=== PATIENT | female | born 1965 | race Caucasian/White ===

== ENCOUNTER 2016-05-18 08:21 | Day surgery (SDC) | payer OTHER ==
[~2016-05-18 08:21] MED LIST: Lactated Ringers 1,000 ML IV SCH; Lidocaine 1%/Sod Bicarbonate in NS 8.4% 1 ML Syringe IV PRN; Sodium Chloride 0.9% 10 ML Syringe FLUSH PRN
[2016-05-18] MEDS ORDERED: Propofol 200 MG/20 ML SDV ONE (08:41)
[2016-05-18] MEDS ORDERED: Lidocaine 1% 6 ML ONE (08:41)
--- NOTE | 2016-05-18 08:44 | PCM.PREANE ---
Preanesthetic Assessment - Anesthesia/Transfusion/Family Hx Anesthesia History: Prior Anesthesia Without Reaction Family History of Anesthesia Reaction: No Transfusion History: Prior Transfusion Without Reaction - Review of Systems General: No Symptoms Pulmonary: Cough (smokers cough) Cardiovascular: No Symptoms Gastrointestinal: No symptoms Neurological: No Symptoms Other: Reports: None - Physical Assessment NPO Status Date: 05/17/16 NPO Status Time: 19:00 Pulse: 65 O2 Sat by Pulse Oximetry: 97 Respiratory Rate: 16 Blood Pressure: 116/49 Temperature: 36.0 C Height: 1.57 m Weight: 52.163 kg ASA Class: 2 Mental Status: Alert & Oriented x3 Airway Class: Mallampati = 1 Dentition: Reports: Normal Dentition Thyro-Mental Finger Breadths: 3 Mouth Opening Finger Breadths: 3 ROM/Head Extension: Full - Allergies Allergies/Adverse Reactions: Allergies Allergy/AdvReac Type Severity Reaction Status Date / Time erythromycin base Allergy Cannot Verified 10/10/14 09:27 [Erythromycin Base] Remember Penicillins Allergy Vomiting Verified 05/17/16 15:32 - Blood Blood Available: No - Anesthesia Plan Pre-Op Medication Ordered: None - Acknowledgements Anesthesia Type Planned: MAC Pt an Appropriate Candidate for the Planned Anesthesia: Yes Alternatives and Risks of Anesthesia Discussed w Pt/Guardian: Yes Pt/Guardian Understands and Agrees with Anesthesia Plan: Yes PreAnesthesia Questionnaire - Past Health History Medical/Surgical History: Denies Medical/Surgical History HEENT History: Reports: Impaired vision Cardiovascular History: Reports: High cholesterol Respiratory History: Reports: Other (see below) Other Respiratory History: cough Gastrointestinal History: Reports: Chronic diarrhea, GERD, Other (see below) Other Gastrointestinal History: abdominal pain, dyspepsia Genitourinary History: Reports: Other (see below) Other Genitourinary History: overactive bladder [employer]ER [employer] History: Reports: None Musculoskeletal History: Reports: None Neurological History: Reports: Migraines Psychiatric History: Reports: Depression, Other (see below) Other Psychiatric History: depression Endocrine/Metabolic History: Reports: None Hematologic History: Reports: Anemia Immunologic History: Reports: None Oncologic (Cancer) History: Reports: None Dermatologic History: Reports: None - Past Surgical History Head Surgeries/Procedures: Reports: None - SUBSTANCE USE Smoking Status *Q: Current Every Day Smoker Tobacco Use Within Last Twelve Months: Cigarettes Second Hand Smoke Exposure: No Days Per Week of Alcohol Use: 0 Number of Drinks Per Day: 0 Total Drinks Per Week: 0 Recreational Drug Use History: No - HOME MEDS Home Medications: Home Meds Acetaminophen/Diphenhydramine [Tylenol Pm Ex-Strength Caplet] 1 tab PO BEDTIME 05/17/16 [History] Ca Car&Hyd/Soy/Cohos/Melatonin [Estroven Nighttime Caplet] 1 tab PO DAILY [History] Famotidine [Take Home: Famotidine 20 MG, 3 Tab Pack] 20 mg PO BEDTIME 05/17/16 [ History] Loperamide HCl [Imodium A-D] 2 mg PO Q2H PRN 05/17/16 [History] Melatonin 12 mg PO BEDTIME 05/17/16 [History] Pantoprazole Sodium [Protonix] 20 mg PO DAILY 05/17/16 [History] Solifenacin [Vesicare] 10 mg PO DAILY 05/17/16 [History] Sucralfate [Carafate] 10 ml PO QID 05/17/16 [History] - CURRENT (IN HOUSE) MEDS Current Meds: Current Medications Lactated Ringer's (Ringers, Lactated) 1,000 mls @ 125 mls/hr IV ASDIRECTED YURIY Stop: 05/18/16 23:00 Lidocaine/Sodium Bicarbonate (Buffered Lidocaine 1% In Ns 8.4%) 0.25 ml IV ONETIME PRN PRN Reason: Prior to IV Start Stop: 05/18/16 18:00 Sodium Chloride (Saline Flush) 10 ml FLUSH ASDIRECTED PRN PRN Reason: Keep Vein Open Stop: 05/18/16 18:00 Discontinued Medications Lidocaine HCl (Xylocaine-Mpf 1%) Confirm Administered Dose 6 mls @ as directed .ROUTE .STK-MED ONE Stop: 05/18/16 08:42 Propofol (Diprivan 20 Ml) Confirm Administered Dose 200 mg .ROUTE .STK-MED ONE Stop: 05/18/16 08:42
[2016-05-18] MEDS ORDERED: Midazolam 1 MG/ML 2 ML SDV ONE (09:29)
--- NOTE | 2016-05-18 09:48 | PCM.OPNOTE ---
- General Post-Op/Procedure Note Date of Surgery/Procedure: 05/18/16 Operative Procedure(s): EGD with bx's of the antrum, body of the stomach, GE junction, and proximal esophagus Findings: normal EGD Pre Op Diagnosis: dysphagia and dyspepsia Post-Op Diagnosis: normal EGD Anesthesia Technique: MAC, Moderate sedation Primary Surgeon: Sarkis Atkinson Pathology: cold forceps biopsy x2 of the antrum, body of the stomach, GE junction, and proximal esophagus EBL in mLs: 0 Complications: None Condition: Good Free Text/Narrative:: After adequate IV sedation and analgesia was obtained the patient was placed on her left side. Through a bite block a lubricated upper endoscope was easily inserted into the esophagus and advanced under direct vision to the stomach. Air was given here, followed by entry into the duodenum. The distal third, second, and first part of the duodenum were endoscopically normal with no mass lesions or inflammatory changes seen. The antrum was endoscopically unremarkable as well. In the retroflexed view there was no hiatal hernia. The fundic and cardiac, regions were endoscopically normal. Because of her history random biopsies of the antrum x2 with forceps and the body of the stomach X2 with cold forceps wee taken. The scope was withdrawn to the GE junction, which was unremarkable. Random biopsies x2 were taken here as well. The body of the esophagus was grossly normal and in its proximal third I took 2 random biopsies. Ediphone Operator photographs were taken for the patient and for the record. Air was removed, as I finished the procedure, which she tolerated well.
--- NOTE | 2016-05-18 09:54 | PCM48HPAN ---
Post Anesthesia Note - EVALUATION WITHIN 48HRS OF ANESTHETIC Vital Signs in Normal Range: Yes Patient Participated in Evaluation: Yes Respiratory Function Stable: Yes Airway Patent: Yes Cardiovascular Function Stable: Yes Hydration Status Stable: Yes Pain Control Satisfactory: Yes Nausea and Vomiting Control Satisfactory: Yes Mental Status Recovered: Yes
[2016-05-18 10:35] VITALS: BP 119/64
== END 2016-05-18 10:30 | disposition home or self-care (01) ==
LOC: JD.SDS 08:21
PROVIDERS: ATTEND Surgery
DX: K21.9 Gastro-esophageal reflux disease without esophagitis (principal); R13.10 Dysphagia, unspecified; R10.13 Epigastric pain; F32.9 Major depressive disorder, single episode, unspecified; E78.5 Hyperlipidemia, unspecified; F17.210 Nicotine dependence, cigarettes, uncomplicated; G47.00 Insomnia, unspecified; Z88.0 Allergy status to penicillin; Z79.899 Other long term (current) drug therapy
CPT/HCPCS: 43239; 88305; J2250; J7120; J2704

== ENCOUNTER 2016-09-26 20:52 | Emergency (ER) | payer OTHER ==
[2016-09-26] MEDS ORDERED: Lidocaine/EPINEPHrine/Tetracaine Soln 1 ML TOP STA (21:50)
--- NOTE | 2016-09-26 22:57 | EDM.PDOC ---
ED HPI GENERAL MEDICAL PROBLEM - General Chief Complaint: Laceration Stated Complaint: LACERATION TO HAND Time Seen by Provider: 09/26/16 21:42 Source of Information: Reports: Patient, RN Notes Reviewed, Other (Friend) History Limitations: Reports: No Limitations - History of Present Illness INITIAL COMMENTS - FREE TEXT/NARRATIVE: The patient states that she lacerated the posterior aspect of her right thumb on the edge of a broken piece of glass while doing dishes around 20:00 tonight. She is otherwise uninjured. She states that her last tetanus vaccination was about 2 years ago. Her PCP is Gloria Orosco. Right Hand Pain Score (Numeric/FACES): 4 - Related Data Allergies Allergy/AdvReac Type Severity Reaction Status Date / Time erythromycin base Allergy Cannot Verified 05/18/16 09:12 [Erythromycin Base] Remember Penicillins Allergy Vomiting Verified 05/18/16 09:12 Home Meds: Home Meds Acetaminophen/Diphenhydramine [Tylenol Pm Ex-Strength Caplet] 1 tab PO BEDTIME 05/17/16 [History] Ca Car&Hyd/Soy/Cohos/Melatonin [Estroven Nighttime Caplet] 1 tab PO DAILY [History] Famotidine [Take Home: Famotidine 20 MG, 3 Tab Pack] 20 mg PO BEDTIME 05/17/16 [ History] Loperamide HCl [Imodium A-D] 2 mg PO Q2H PRN 05/17/16 [History] Melatonin 12 mg PO BEDTIME 05/17/16 [History] Pantoprazole Sodium [Protonix] 20 mg PO DAILY 05/17/16 [History] Solifenacin [Vesicare] 10 mg PO DAILY 05/17/16 [History] Sucralfate [Carafate] 10 ml PO QID 05/17/16 [History] Past Medical History HEENT History: Reports: Impaired Vision Psychiatric History: Reports: Depression Hematologic History: Reports: Anemia - Past Surgical History HEENT Surgical History: Reports: Oral Surgery ([place] teeth extraction) Neurological Surgical History: Reports: None Social & Family History - Tobacco Use Smoking Status *Q: Current Every Day Smoker Years of Tobacco use: 35 Packs/Tins Daily: 0.5 - Caffeine Use Caffeine Use: Reports: Coffee - Alcohol Use Alcohol Use History: Yes Days Per Week of Alcohol Use: 0 Number of Drinks Per Day: 0 Total Drinks Per Week: 0 Alcohol Use Frequency: Socially - Recreational Drug Use Recreational Drug Use: No - Living Situation & Occupation Living situation: Reports: , Alone 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) ED ROS GENERAL - Review of Systems Review Of Systems: See Below Constitutional: Reports: No Symptoms HEENT: Reports: No Symptoms Respiratory: Reports: No Symptoms Cardiovascular: Reports: No Symptoms Endocrine: Reports: No Symptoms GI/Abdominal: Reports: No Symptoms : Reports: No Symptoms Musculoskeletal: Reports: No Symptoms Skin: Reports: No Symptoms Neurological: Reports: No Symptoms Psychiatric: Reports: No Symptoms Hematologic/Lymphatic: Reports: No Symptoms Immunologic: Reports: No Symptoms ED EXAM, SKIN/RASH Exam: See Below Exam Limited By: No Limitations General Appearance: Alert, WD/WN, No Apparent Distress Extremities: Normal Capillary Refill, Other (Approximately 2.0 cm linear laceration across the dorsal aspect of the patient's right thumb. No tendinous injury. Neurovascular status of the right thumb is intact.) ED SKIN PROCEDURES - Laceration/Wound Repair Right Hand Lac/Wound length In cm: 2.0 Appearance: Subcutaneous, Linear, Clean Distal NVT: Neuro & Vascular Intact, No Tendon Injury Anesthetic Type: Topical (LET) Skin Prep: Providone-Iodine (Betadine) Exploration/Debridement/Repair: Wound Explored, In a Bloodless Field, Explored to Base, No Foreign Material Found, Wound Margins Revised Closed with: Sutures Suture Size: 3-0 # of Sutures: 6 Suture Type: Nylon, Running, Simple Sterile Dressing Applied: Provider Tetanus Status Addressed: Yes Complications: No Course - Vital Signs Last Recorded V/S: Last Vital Signs Temp 36.8 C 09/26/16 21:02 Pulse 78 09/26/16 21:02 Resp 19 09/26/16 21:02 BP Pulse Ox 98 09/26/16 21:02 - Orders/Labs/Meds Meds: Medications Discontinued Medications Generic Name Dose Route Start Last Admin Trade Name Seun PRN Reason Stop Dose Admin Lidocaine/Tetracaine 2 ml 09/26/16 21:50 09/26/16 21:57 Let Soln TOP 09/26/16 21:51 2 ml ONETIME STA Administration - Re-Assessments/Exams Free Text/Narrative Re-Assessment/Exam: 09/26/16 22:54 The patient's right hand laceration was closed with 6 running sutures. Departure - Departure Time of Disposition: 22:54 Disposition: Home, Self-Care 01 Condition: Good Clinical Impression: Laceration of right hand - Discharge Information Instructions: Laceration Care, Adult Referrals: Gloria Orosco PA [Primary Care Provider] - Forms: ED Department Discharge Additional Instructions: You were seen in the emergency room after cutting the back of your right thumb on a broken piece of glass. Your wound was closed with 6 sutures. Keep the wound clean with ordinary soap and water. Pat dry, then cover with a dressing, daily. The wound can get wet, but should not be soaked, such as with doing the dishes, a bath, or swimming. The sutures should be ready for removal by , 10/06/2016. This can be done at a walk-in clinic, at your doctor's office, or back in the ER. If any other problems, please do not hesitate to return to the ER.
== END 2016-09-26 23:00 | disposition home or self-care (01) ==
LOC: JD.ED 20:52
DX: S61.011A Laceration without foreign body of right thumb without damage to nail, initial encounter (principal); F32.9 Major depressive disorder, single episode, unspecified; F17.210 Nicotine dependence, cigarettes, uncomplicated; Z86.2 Personal history of diseases of the blood and blood-forming organs and certain disorders involving the immune mechanism; Z79.899 Other long term (current) drug therapy; Z88.0 Allergy status to penicillin; Z88.1 Allergy status to other antibiotic agents; W25.XXXA Contact with sharp glass, initial encounter; Y93.G1 Activity, food preparation and clean up
CPT/HCPCS: 12001; 99283; A9270; 99282

== ENCOUNTER 2017-03-26 16:05 | Emergency (ER) | payer OTHER ==
[2017-03-26] MEDS ORDERED: traMADol 50 MG Tab PO ONE (16:52)
--- NOTE | 2017-03-26 18:01 | CT ---
Head CT Technique: Multiple axial sections through the brain were obtained. Intravenous contrast was not utilized. Comparison: No prior intracranial imaging. Findings: Ventricles along with basal cisterns and sulci over the convexities are within normal limits for the patient's age. No abnormal parenchymal densities are seen. No evidence of intracranial hemorrhage. No midline shift or mass effect is seen. Bone window settings were reviewed which shows no acute calvarial abnormality. Visualized sinuses are clear. Impression: 1. Nothing acute is appreciated on noncontrast head CT exam. Diagnostic code #1
--- NOTE | 2017-03-26 18:03 | CT ---
CT cervical spine Technique: Multiple axial sections were obtained from above C1 inferiorly to the bottom of T2. Reconstructed sagittal and coronal images were reviewed. Findings: Mastoid sinuses are clear. Posterior skull base is intact. Slight kyphosis is noted with minimal scoliosis. Minimal disc space narrowing is noted C5-C6. Vertebral bodies and posterior arches are intact. No fracture is seen. Mild scattered degenerative apophyseal change is seen. No abnormal subluxation is seen. Impression: 1. Slight kyphosis which is most likely positional. Minimal scoliosis is noted. 2. Minimal degenerative change. 3. No acute abnormality is seen on CT study of the cervical spine. Diagnostic code #2
--- NOTE | 2017-03-26 18:51 | EDM.PDOC ---
ED HPI GENERAL MEDICAL PROBLEM - General Chief Complaint: Head Injury Stated Complaint: FALL-HEAD INJURY Time Seen by Provider: 03/26/17 16:21 Source of Information: Reports: Patient History Limitations: Reports: No Limitations - History of Present Illness INITIAL COMMENTS - FREE TEXT/NARRATIVE: The patient slipped and fell on the ice last night. She hit her head and hurt her neck. She also did hit her left elbow. She had no LOC. She now has a headache and neck pain. She has no numbness or weakness. She has no chest pain or shortness or breath. She has no abdominal pain. She has an abrasion to her left elbow. She has no other injuries. Onset: Sudden Duration: Day(s): (last night) Location: Reports: Head, Neck, Upper Extremity, Left (elbow) Quality: Reports: Sharp Severity: Moderate Improves with: Reports: Immobilization Worsens with: Reports: Movement Associated Symptoms: Reports: Headaches. Denies: Chest Pain, Cough, Nausea/ Vomiting, Shortness of Breath Head Pain Score (Numeric/FACES): 7 - Related Data Allergies Allergy/AdvReac Type Severity Reaction Status Date / Time erythromycin base Allergy Cannot Verified 03/26/17 16:19 [Erythromycin Base] Remember Penicillins Allergy Vomiting Verified 03/26/17 16:19 Home Meds: Home Meds Loperamide HCl [Imodium A-D] 2 mg PO Q2H PRN 05/17/16 [History] Solifenacin [Vesicare] 10 mg PO DAILY 05/17/16 [History] Eszopiclone [Lunesta] 1 tab PO BEDTIME 03/26/17 [History] buPROPion [Wellbutrin] 75 mg PO DAILY 03/26/17 [History] Past Medical History - Past Health History Medical/Surgical History: Denies Medical/Surgical History HEENT History: Reports: Impaired Vision Cardiovascular History: Reports: High Cholesterol Respiratory History: Reports: Other (See Below) Other Respiratory History: cough Gastrointestinal History: Reports: Chronic Diarrhea, GERD Other Gastrointestinal History: abdominal pain, dyspepsia Genitourinary History: Reports: Other (See Below) Other Genitourinary History: overactive bladder COTTON TIPPER History: Reports: None Musculoskeletal History: Reports: None Neurological History: Reports: Migraines Psychiatric History: Reports: Depression Other Psychiatric History: depression Endocrine/Metabolic History: Reports: None Hematologic History: Reports: Anemia Immunologic History: Reports: None Oncologic (Cancer) History: Reports: None Dermatologic History: Reports: None - Past Surgical History Head Surgeries/Procedures: Reports: None HEENT Surgical History: Reports: Oral Surgery Cardiovascular Surgical History: Reports: None Neurological Surgical History: Reports: None Social & Family History - Tobacco Use Smoking Status *Q: Current Every Day Smoker Years of Tobacco use: 30 Packs/Tins Daily: 1 Used Tobacco, but Quit: No Second Hand Smoke Exposure: No - Caffeine Use Caffeine Use: Reports: Coffee - Alcohol Use Days Per Week of Alcohol Use: 0 Number of Drinks Per Day: 0 Total Drinks Per Week: 0 - Recreational Drug Use Recreational Drug Use: No - Living Situation & Occupation Living situation: Reports: , Alone 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) ED ROS GENERAL - Review of Systems Review Of Systems: See Below Constitutional: Reports: No Symptoms HEENT: Reports: No Symptoms Respiratory: Reports: No Symptoms Cardiovascular: Reports: No Symptoms Endocrine: Reports: No Symptoms GI/Abdominal: Reports: No Symptoms : Reports: No Symptoms Musculoskeletal: Reports: Neck Pain (Moderate) Skin: Reports: No Symptoms Neurological: Reports: Headache ED EXAM, HEAD INJURY - Physical Exam Exam: See Below Exam Limited By: No Limitations General Appearance: Alert, No Apparent Distress Head: Other (Pain upon palpation to the back of the head) Ears: Normal External Exam Nose: Normal Inspection Neck: Tender Midline Respiratory: No Respiratory Distress, Lungs Clear, Normal Breath Sounds Cardiovascular: Regular Rate, Rhythm, No Edema, No Murmur GI/Abdominal Exam: Normal Bowel Sounds, Soft, Non-Tender, No Organomegaly Back Exam: Normal Inspection Extremities: Normal Inspection Neurologic: No Motor/Sensory Deficits, Alert, Oriented x 3 Course - Vital Signs Last Recorded V/S: Last Vital Signs Temp 97.9 F 03/26/17 16:16 Pulse 77 03/26/17 16:16 Resp 16 03/26/17 16:16 BP Pulse Ox 99 03/26/17 16:16 - Orders/Labs/Meds Meds: Medications Discontinued Medications Generic Name Dose Route Start Last Admin Trade Name Freq PRN Reason Stop Dose Admin Tramadol HCl 50 mg 03/26/17 16:52 03/26/17 17:09 Ultram PO 03/26/17 16:53 50 mg ONETIME ONE Administration - Re-Assessments/Exams Free Text/Narrative Re-Assessment/Exam: 03/26/17 18:49 I ordered some ultram for the pain and a CT of her neck and head. The CT of her head shows nothing acute is appreciated on noncontrast head CT exam. The CT of her cervical spine shows slight kyphosis which is most likely positional. Minimal scoliosis is noted. Minimal degenerative change. She feels better. I will discharge her home. Departure - Departure Time of Disposition: 18:50 Disposition: Home, Self-Care 01 Condition: Good Clinical Impression: Fall Qualifiers: Encounter type: initial encounter Qualified Code(s): W19.XXXA - Unspecified fall, initial encounter Head injury Qualifiers: Encounter type: initial encounter Qualified Code(s): S09.90XA - Unspecified injury of head, initial encounter Cervical strain Qualifiers: Encounter type: initial encounter Qualified Code(s): S16.1XXA - Strain of muscle, fascia and tendon at neck level, initial encounter - Discharge Information Referrals: Rama Napier MD [Primary Care Provider] - 1 Week Forms: ED Department Discharge, ED Return to Work/School Form Additional Instructions: Take motrin or tylenol for pain. You may also take some ultram for the pain. Do not drive with the ultram. Follow up with your doctor. Please return if you are worse.
== END 2017-03-26 19:14 | disposition home or self-care (01) ==
LOC: JD.ED 16:05
DX: S09.90XA Unspecified injury of head, initial encounter (principal); S16.1XXA Strain of muscle, fascia and tendon at neck level, initial encounter; E78.00 Pure hypercholesterolemia, unspecified; F17.210 Nicotine dependence, cigarettes, uncomplicated; N32.89 Other specified disorders of bladder; F32.9 Major depressive disorder, single episode, unspecified; Z88.0 Allergy status to penicillin; Z79.899 Other long term (current) drug therapy; W00.0XXA Fall on same level due to ice and snow, initial encounter; Z88.1 Allergy status to other antibiotic agents
CPT/HCPCS: 70450; 72125; 99284; A9270; 99283

== ENCOUNTER 2019-07-20 22:52 | Emergency (ER) | payer MEDICAID ==
[2019-07-20 23:08] VITALS: BP 131/72; PULSE 74
[2019-07-21] MEDS ORDERED: Cephalexin 500 MG Cap PO STA (00:10)
[2019-07-21] MEDS ORDERED: Bupivacaine 0.5% 10 ML SDV INJECT ONE (00:11)
[2019-07-21] MEDS ORDERED: Lidocaine 1% with EPINEPHrine 1:100,000 20 ML MDV INJECT ONE (00:11)
--- NOTE | 2019-07-21 00:12 | EDM.PDOC ---
ED HPI GENERAL MEDICAL PROBLEM - General Chief Complaint: Laceration Stated Complaint: LT KNEE INJURY AND RT ELBOW INJURY Time Seen by Provider: 07/20/19 23:33 Source of Information: Reports: Patient, Family (Sister) History Limitations: Reports: No Limitations - History of Present Illness INITIAL COMMENTS - FREE TEXT/NARRATIVE: Ms. Scott is a very pleasant 54-year-old woman who is brought to the ED by her sister after she fell, injuring her right elbow and anterior left knee. The patient states that she got wound up in the leash of her niece's dog that she was caring for around 21:30 to 22:00 this evening, falling on asphalt. She did not strike her head, and there was no loss of consciousness. She states that she last ate around 16:30. She denies drinking any alcohol today. Here in the ED, the patient is found to be hemodynamically stable, afebrile, saturating 98% on room air. Other than tonight's injuries, the patient denies recent fever, chills, sore throat, ear pain, nasal or sinus congestion, cough, dyspnea, chest pain, palpitations, nausea, vomiting, constipation, diarrhea, abdominal pain, urinary symptoms, recent weight gain or weight loss, recent bloody bowel movements or black bowel movements, recent joint aches, headaches, or rashes. Our records indicate that her last tetanus vaccination was in 2014. The patient's PCP is SOFIA Mckay. Her therapist is Livia Givens. Left Knee Pain Score (Numeric/FACES): 6 - Related Data Allergies Allergy/AdvReac Type Severity Reaction Status Date / Time erythromycin base Allergy Cannot Verified 07/20/19 23:07 [Erythromycin Base] Remember Penicillins AdvReac Vomiting Verified 07/20/19 23:07 Home Meds: Home Meds Loperamide HCl [Imodium A-D] 2 mg PO Q2H PRN 05/17/16 [History] Solifenacin [Vesicare] 10 mg PO DAILY 05/17/16 [History] Eszopiclone [Lunesta] 1 tab PO BEDTIME 03/26/17 [History] buPROPion [Wellbutrin] 75 mg PO DAILY 03/26/17 [History] Past Medical History HEENT History: Reports: Impaired Vision Genitourinary History: Reports: Urinary Incontinence (overactive bladder) 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) Psychiatric History: Reports: Anxiety, Depression, Other (See Below) (Insomnia) Endocrine/Metabolic History: Reports: Hypothyroidism, Other (See Below) ( Prediabetes) Social & Family History - Tobacco Use Smoking Status *Q: Current Every Day Smoker Years of Tobacco use: 40 Packs/Tins Daily: 0.5 Packs/Tins Daily Comment: Down from 1 ppd - Caffeine Use Caffeine Use: Reports: Coffee - Alcohol Use Alcohol Use History: Yes Alcohol Use Frequency: Socially (occasionaly to excess) - Recreational Drug Use Recreational Drug Use: Yes Drug Use in Last 12 Months: No Recreational Drug Type: Reports: Methamphetamine (last smoked 2000) - Living Situation & Occupation Living situation: Reports: , Alone Occupation: Disabled ED ROS GENERAL - Review of Systems Review Of Systems: Comprehensive ROS is negative, except as noted in HPI. GI/Abdominal: Reports: Diarrhea (chronic) ED EXAM, SKIN/RASH Exam: See Below Exam Limited By: No Limitations General Appearance: Alert, WD/WN, No Apparent Distress Extremities: Other (There is an abrasion to the medial aspect of the patient's right elbow, but no laceration. There is an approximately 6 cm irregular laceration, deep to the patellar tendon, over the patient's anterior left knee. No tendon injury visible, and the patient has good extension of the knee and good dorsiflexion of her left foot. Neurovascular status of the left lower extremity is intact.) Course - Vital Signs Last Recorded V/S: Last Vital Signs Temp 37.1 C 07/20/19 23:05 Pulse 74 07/20/19 23:05 Resp 16 07/20/19 23:05 BP 131/72 07/20/19 23:05 Pulse Ox 98 07/20/19 23:05 - Orders/Labs/Meds Meds: Medications Discontinued Medications Generic Name Dose Route Start Last Admin Trade Name Freq PRN Reason Stop Dose Admin Bupivacaine HCl 10 ml 07/21/19 00:11 07/21/19 00:51 Sensorcaine-Mpf 0.5% INJECT 07/21/19 00:12 10 ml ONETIME ONE Administration Cephalexin 500 mg 07/21/19 00:10 07/21/19 00:51 Keflex PO 07/21/19 00:11 500 mg ONETIME STA Administration Lidocaine/Epinephrine 20 ml 07/21/19 00:11 07/21/19 00:51 Xylocaine 1% With Epinephrine 1:100,000 INJECT 07/21/19 00:12 20 ml ONETIME ONE Administration - Re-Assessments/Exams Free Text/Narrative Re-Assessment/Exam: 07/21/19 00:11 I am concerned about the depth of the patient's left knee laceration. Case discussed with Dr. Mclain at 00:08. Based on the description of the wound, he felt that it would be acceptable to have us irrigate the wound with a dilute iodine solution, then approximate the edges with yris. He recommended the patient be on oral Keflex for a couple of days. She can then follow-up with him in his office this coming week. 07/21/19 00:41 Lesli KATE began to irrigate the patient's wound with a dilute solution of iodine , however, the patient did not tolerate that well, so I injected a 50:50 admixture of lidocaine 1% with epinephrine and bupivacaine 0.5% without epinephrine, to good anesthetic effect. The wound was then copiously irrigated. I recovered a single piece of ross-colored material from the wound, but no other foreign bodies were seen. The wound was then approximated with 11 yris. The patient tolerated the procedure well. The wound will be dressed per Lesli KATE. Lesli KATE will also wash the abrasion to the medial aspect of the patient's right elbow, to be followed by the application of antibiotic ointment and a dressing. Since the pharmacy will not be open until noon, the patient will be discharged home with an [facility] prescription for Keflex. Departure - Departure Time of Disposition: 00:43 Disposition: Home, Self-Care 01 Condition: Good Clinical Impression: Fall at home, Abrasion of right elbow, Laceration of left knee - Discharge Information *PRESCRIPTION DRUG MONITORING PROGRAM REVIEWED*: Not Applicable *COPY OF PRESCRIPTION DRUG MONITORING REPORT IN PATIENT FRANCINE: Not Applicable Instructions: Laceration Care, Adult, [id number], Abrasion, [id number] Referrals: Luma Garcia PA-C [Primary Care Provider] - Javon Mclain MD [Physician] - Forms: ED Department Discharge Additional Instructions: You were seen in the emergency room after falling on asphalt after getting tangled in the leash of your niece's dog. You sustained an abrasion to your right elbow, and a deep laceration to the front of your left knee. Keep your right elbow clean with ordinary soap and water when you bathe. Pat dry, then apply a thin smear of bacitracin ointment before covering with a sterile dressing, daily. 11 yris were used to close the left knee wound. Keep the knee wound clean with ordinary soap and water when you bathe, but do not soak the wound, such as in the tub or in a swimming pool. Pat dry, then apply a clean dressing without antibiotic ointment, daily. You have been prescribed the antibiotic Keflex. Take 1 tablet of Keflex every 6 hours, as prescribed. You may take [id number] Tylenol or ibuprofen as needed for discomfort. Follow-up with the Surgeon Dr. Javon Mclain this coming week. Call his office on Monday morning to make an appointment. If any other problems, please do not hesitate to return to the ER. Sepsis Event Note (ED) - Evaluation Sepsis Screening Result: No Definite Risk - Focused Exam Vital Signs: Vital Signs Temp Pulse Resp BP Pulse Ox 07/20/19 23:05 37.1 C 74 16 131/72 98
== END 2019-07-21 01:02 | disposition home or self-care (01) ==
LOC: JD.ED 22:52
DX: S81.012A Laceration without foreign body, left knee, initial encounter (principal); S50.311A Abrasion of right elbow, initial encounter; F41.9 Anxiety disorder, unspecified; F32.9 Major depressive disorder, single episode, unspecified; F17.210 Nicotine dependence, cigarettes, uncomplicated; Z88.0 Allergy status to penicillin; Z88.1 Allergy status to other antibiotic agents; Z79.899 Other long term (current) drug therapy; W01.0XXA Fall on same level from slipping, tripping and stumbling without subsequent striking against object, initial encounter
CPT/HCPCS: 12002; 99283; A9270; J3490

== ENCOUNTER 2020-04-02 09:57 | Day surgery (SDC) | payer MEDICARE, MEDICAID ==
[~2020-04-02 09:57] MED LIST changes: +Lidocaine 1%/Sod Bicarbonate in NS 8.4% 1 ML Syringe IDERM PRN; -Lidocaine 1%/Sod Bicarbonate in NS 8.4% 1 ML Syringe IV PRN
--- NOTE | 2020-04-02 10:16 | PCM.PREANE ---
Preanesthetic Assessment - Anesthesia/Transfusion/Family Hx Anesthesia History: Prior Anesthesia Without Reaction Family History of Anesthesia Reaction: No Transfusion History: Prior Transfusion Without Reaction Intubation History: Unknown - Review of Systems General: No Symptoms Pulmonary: No Symptoms, Cough Gastrointestinal: No Symptoms Neurological: No Symptoms Other: Reports: None - Physical Assessment NPO Status Date: 04/01/20 NPO Status Time: 22:00 ASA Class: 3 Mental Status: Alert & Oriented x3 Airway Class: Mallampati = 1 Dentition: Reports: Broken Tooth/Teeth (upper right lower middle very loose teeth, pt informed of possibility of those teeth being damaged/coming out) Thyro-Mental Finger Breadths: 3 Mouth Opening Finger Breadths: 3 ROM/Head Extension: Full Lungs: Clear to Auscultation, Normal Respiratory Effort Cardiovascular: Regular Rate, Regular Rhythm - Lab Values: Laboratory Last Values MRSA (PCR) Negative 03/24/20 17:03 - Allergies Allergies/Adverse Reactions: Allergies Allergy/AdvReac Type Severity Reaction Status Date / Time erythromycin base Allergy Cannot Verified 04/01/20 12:26 [Erythromycin Base] Remember Penicillins AdvReac Vomiting Verified 04/01/20 12:26 - Acknowledgements Anesthesia Type Planned: NGHIA, MAC Pt an Appropriate Candidate for the Planned Anesthesia: Yes Alternatives and Risks of Anesthesia Discussed w Pt/Guardian: Yes Pt/Guardian Understands and Agrees with Anesthesia Plan: Yes PreAnesthesia Questionnaire - Past Health History Medical/Surgical History: Denies Medical/Surgical History HEENT History: Reports: Allergic Rhinitis, Impaired Vision, Sinusitis Cardiovascular History: Reports: High Cholesterol Respiratory History: Reports: Sleep Apnea, Other (See Below) Other Respiratory History: cough Gastrointestinal History: Reports: Chronic Diarrhea, GERD Other Gastrointestinal History: abdominal pain, dyspepsia, elevated LFTs, dysphagia, diarrhea Genitourinary History: Reports: Urinary Incontinence Other Genitourinary History: overactive bladder, frequency 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 Musculoskeletal History: Reports: Arthritis, Other (See Below) Other Musculoskeletal History: back pain, carpal tunnel syndrome, left knee laceration, neck muscle strain, rib pain, thumb pain Neurological History: Reports: Migraines, Other (See Below) Other Neuro History: short term memory loss Psychiatric History: Reports: Addiction, Anxiety, Depression, PTSD, Other (See Below) Other Psychiatric History: ETOH abx, fatigue, insomnia, Meth abx Endocrine/Metabolic History: Reports: Hypothyroidism, Vitamin D Deficiency Hematologic History: Reports: Anemia Immunologic History: Reports: None Oncologic (Cancer) History: Reports: None Dermatologic History: Reports: Other (See Below) Other Dermatologic History: itchy scalp, pruritis, rash, tinea corposis, cellulitis of right finger - Infectious Disease History Infectious Disease History: Reports: C-Difficile - Past Surgical History Head Surgeries/Procedures: Reports: None HEENT Surgical History: Reports: Oral Surgery Cardiovascular Surgical History: Reports: None Respiratory Surgical History: Reports: None GI Surgical History: Reports: EGD Female Surgical History: Reports: None, D&C Male Surgical History: Reports: None Endocrine Surgical History: Reports: None Neurological Surgical History: Reports: None Oncologic Surgical History: Reports: None Dermatological Surgical History: Reports: None - SUBSTANCE USE Tobacco Use Status *Q: Current Every Day Tobacco User Recreational Drug Use History: No - HOME MEDS Home Medications: Home Meds Fluticasone Propionate [Flovent] 1 dose INH BID PRN 02/28/20 [History] Prazosin HCl [Prazosin] 2 mg PO BEDTIME 02/28/20 [History] Sertraline HCl 100 mg PO DAILY 02/28/20 [History] atorvaSTATin Calcium [Atorvastatin Calcium] 40 mg PO BEDTIME 02/28/20 [History] hydrOXYzine HCL [hydrOXYzine] 10 mg PO QID PRN 02/28/20 [History] traZODone HCl [Trazodone HCl] 100 mg PO BEDTIME 02/28/20 [History] Cholecalciferol (Vitamin D3) [Vitamin D3] 400 unit PO DAILY 04/01/20 [History] Folic Acid 0.4 mg PO DAILY 04/01/20 [History] Levothyroxine [Synthroid] 50 mcg PO DAILY 04/01/20 [History] Thiamine HCl [Vitamin B-1] 50 mg PO DAILY 04/01/20 [History] oxyCODONE 5 - 10 mg PO Q6H PRN #30 tab 04/02/20 [Rx] - CURRENT (IN HOUSE) MEDS Current Meds: Current Medications Lactated Ringer's (Ringers, Lactated) 1,000 mls @ 125 mls/hr IV ASDIRECTED YURIY Stop: 04/02/20 23:00 Lidocaine/Sodium Bicarbonate (Buffered Lidocaine 1% In Ns 8.4%) 0.25 ml IDERM ONETIME PRN PRN Reason: Prior to IV Start Stop: 04/02/20 18:00 Sodium Chloride (Saline Flush) 10 ml FLUSH ASDIRECTED PRN PRN Reason: Keep Vein Open Stop: 04/02/20 18:00
[2020-04-02] MEDS ORDERED: Scopolamine 1.5 MG Transdermal Patch TOP SCH (10:17)
[2020-04-02] MEDS ORDERED: Propofol 200 MG/20 ML SDV ONE ×3 (10:32→12:32)
[2020-04-02] MEDS ORDERED: ceFAZolin 1 GM Vial ONE (10:32)
[2020-04-02] MEDS ORDERED: Lidocaine 1% 4 ML ONE (10:32)
[2020-04-02] MEDS ORDERED: Midazolam 1 MG/ML 2 ML SDV ONE ×3 (10:34→12:13)
[2020-04-02] MEDS ORDERED: fentaNYL 100 MCG/2 ML SDV ONE (10:35)
[2020-04-02] MEDS ORDERED: Sodium Bicarbonate 8.4% 50 MEQ/50 ML SDV ONE (10:39)
[2020-04-02] MEDS ORDERED: Lidocaine 0.5% 50 ML SDV ONE (10:39)
[2020-04-02] MEDS ORDERED: Ondansetron 4 MG/2 ML SDV ONE (12:27)
[2020-04-02] MEDS ORDERED: Ketorolac 30 MG/ML SDV ONE (12:27)
--- NOTE | 2020-04-02 12:59 | PCM48HPAN ---
Post Anesthesia Note - EVALUATION WITHIN 48HRS OF ANESTHETIC Vital Signs in Normal Range: Yes Patient Participated in Evaluation: Yes Respiratory Function Stable: Yes Airway Patent: Yes Cardiovascular Function Stable: Yes Hydration Status Stable: Yes Pain Control Satisfactory: Yes Nausea and Vomiting Control Satisfactory: Yes Mental Status Recovered: Yes Vital Signs: Last Vital Signs Temp 36.4 C 04/02/20 10:22 Pulse 59 L 04/02/20 10:22 Resp 16 04/02/20 10:22 BP 127/71 04/02/20 10:22 Pulse Ox 96 04/02/20 10:22
--- NOTE | 2020-04-02 13:38 | CR ---
Left wrist: 4 fluoroscopic spot views were obtained of the left wrist. Study was obtained utilizing C-arm device. Study shows procedure of previous resection of the trapezoid bone. There is a single wire crossing the base of the first metacarpal to the proximal shaft of the second metacarpal with 2 subsequent anchors being placed. Fluoroscopy time is given as 20.0 seconds. Impression: 1. Procedural study as noted above. Diagnostic code #2
[2020-04-02] MEDS ORDERED: oxyCODONE 5 MG Tab PO ONE (14:00)
[2020-04-02 14:15] VITALS: BP 112/72; PULSE 65
--- NOTE | 2020-04-12 13:45 | PCM.OPNOTE ---
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
--- NOTE | 2020-04-12 14:32 | OR ---
DATE OF OPERATION: 04/02/2020 SURGEON: John Alcazar MD OPERATION PERFORMED: Left first carpometacarpal joint trapeziectomy with TightRope suspension arthroplasty. PREOPERATIVE DIAGNOSIS: Left thumb basilar joint arthritis. POSTOPERATIVE DIAGNOSIS: Left thumb basilar joint arthritis. ANESTHESIA: MAC with regional [place] block. ANESTHESIA PROVIDER: Brenda Rosales. CAB STATION ATTENDANT: Jennifer Davila PA-C ESTIMATED BLOOD LOSS: 5 mL. COMPLICATIONS: None. CONDITION: Stable. DESCRIPTION OF PROCEDURE: The patient was identified in the preoperative holding area where proper site was marked and identified by the surgeon. The patient was taken back to the operating theater where after adequate anesthesia, the patient's left upper extremity was sterilely prepped and draped in the usual sterile fashion. OR time-out was performed. The patient received 2 g of IV Ancef. At this time, standard dorsal incision was made over the first carpometacarpal joint. This was taken down to the capsule. Capsulotomy was then performed. Care was taken to protect the neurovascular bundle proximally. The capsule was then taken down both volarly and dorsally until the trapezium was identified. Trapezium was then resected using an osteotome as well as a rongeur. C-arm fluoroscopy was utilized making sure that the trapezium was removed in whole. Once it was found to be removed in whole, the [employer] TightRope suspension arthroplasty kit was opened, and the graduated guide pin was then placed at the base of the first metacarpal up into the metaphyseal region of the second metacarpal. This was found to be in proper positioning on both AP and lateral views. The TightRope was then brought up through the first metacarpal and through the second metacarpal. Tension was then held, and a knot was tied on the second metacarpal under proper tensioning making sure the patient was able to achieve a flat palm and to oppose the thumb with the small digit. Once this was tied, bounce back effect was noted to be good with no signs of significant loosening of the first metacarpal joint. At this time, adequate saline was irrigated through the wound. 2-0 Vicryl was used for a small amount of capsular closure. 3-0 Vicryl was used subcutaneously. Monocryl was used for closure of the skin. The patient was placed in a sterile soft dressing and a radial thumb spica splint and sent to the PACU in stable condition. MMYESSICA /[id number]
== END 2020-04-02 14:25 | disposition home or self-care (01) ==
LOC: JD.SDS 09:57
PROVIDERS: ATTEND Orthopaedic Surgery
DX: M18.12 Unilateral primary osteoarthritis of first carpometacarpal joint, left hand (principal); G47.30 Sleep apnea, unspecified; E78.00 Pure hypercholesterolemia, unspecified; F17.210 Nicotine dependence, cigarettes, uncomplicated; E03.9 Hypothyroidism, unspecified; R74.01 Elevation of levels of liver transaminase levels; R94.31 Abnormal electrocardiogram [ECG] [EKG]; Z88.0 Allergy status to penicillin; Z88.1 Allergy status to other antibiotic agents; Z79.899 Other long term (current) drug therapy; Z98.890 Other specified postprocedural states; Z87.440 Personal history of urinary (tract) infections
CPT/HCPCS: 25210; 76000; 87641; A9270; C1713; J0690; J1885; J2250; J2405; J2704; J3010; J7120; 01830

== ENCOUNTER 2021-09-14 15:03 | Emergency (ER) | payer MEDICARE, MEDICAID ==
[2021-09-14 15:54] VITALS: BP 130/91; PULSE 70
[2021-09-14] MEDS ORDERED: Sodium Chloride 0.9% 1,000 ML IV ONE (16:52)
== END 2021-09-14 18:36 | disposition home or self-care (01) ==
LOC: JD.ED 15:03
DX: R42 Dizziness and giddiness (principal); T43.215A Adverse effect of selective serotonin and norepinephrine reuptake inhibitors, initial encounter; T48.1X5A Adverse effect of skeletal muscle relaxants [neuromuscular blocking agents], initial encounter; E78.00 Pure hypercholesterolemia, unspecified; E03.9 Hypothyroidism, unspecified; F17.210 Nicotine dependence, cigarettes, uncomplicated; Z88.1 Allergy status to other antibiotic agents; Z88.0 Allergy status to penicillin; Z79.899 Other long term (current) drug therapy; Z86.16 Personal history of COVID-19
CPT/HCPCS: 36415; 83735; 85025; 96360; 99284; J7030; 80053

== ENCOUNTER 2024-06-13 06:32 | Day surgery (SDC) | payer MEDICARE, MEDICAID ==
[~2024-06-13 06:32] MED LIST changes: -Lidocaine 1%/Sod Bicarbonate in NS 8.4% 1 ML Syringe IDERM PRN; +Sodium Chloride 0.9% 10 ML Syringe FLUSH SCH
[2024-06-13] MEDS: Lactated Ringers 1,000 ML IV SCH (07:00)
[2024-06-13] MEDS ORDERED: Scopalamine 1mg/3day Transdermal Patch TOP ONE (07:05)
[2024-06-13] MEDS ORDERED: Glycopyrrolate 0.2 MG/ML 2 ML SDV ONE (07:09)
[2024-06-13] MEDS ORDERED: Lidocaine 2% 5 ML SDV ONE (07:09)
[2024-06-13] MEDS ORDERED: Propofol 200 MG/20 ML SDV ONE ×2 (07:09→07:55)
[2024-06-13] MEDS: Scopalamine 1mg/3day Transdermal Patch TOP ONE (07:19)
[2024-06-13 10:16] VITALS: BP 120/70; PULSE 74
== END 2024-06-13 09:15 | disposition home or self-care (01) ==
LOC: JD.SDS 06:32
PROVIDERS: ATTEND Surgery
DX: Z12.11 Encounter for screening for malignant neoplasm of colon (principal); K21.9 Gastro-esophageal reflux disease without esophagitis; K62.1 Rectal polyp; K57.30 Diverticulosis of large intestine without perforation or abscess without bleeding; K44.9 Diaphragmatic hernia without obstruction or gangrene; F32.A Depression, unspecified; F41.9 Anxiety disorder, unspecified; E78.00 Pure hypercholesterolemia, unspecified; E03.9 Hypothyroidism, unspecified; F17.200 Nicotine dependence, unspecified, uncomplicated; Z79.890 Hormone replacement therapy; Z79.899 Other long term (current) drug therapy; Z88.0 Allergy status to penicillin; Z88.1 Allergy status to other antibiotic agents; Z88.8 Allergy status to other drugs, medicaments and biological substances
CPT/HCPCS: 43239; 45380; 88305; A9270; C9777; J1596; J2003; J2704; J7120; 00813; 43499